=== PATIENT | female | born 1995 | race African-American/Black ===

== ENCOUNTER 2017-12-31 11:49 | Emergency (ER) | payer SELFPAY ==
[2017-12-31] MEDS ORDERED: predniSONE 20 MG TAB ONE (12:31)
[2017-12-31] MEDS ORDERED: Amoxicillin/Potassium Clav 875 MG TAB ONE (12:31)
== END 2017-12-31 12:43 | disposition home or self-care (01) ==
LOC: MADERS 11:49
DX: J02.9 Acute pharyngitis, unspecified (principal)
CPT/HCPCS: 99282; J7506

== ENCOUNTER 2018-10-07 06:33 | Emergency (ER) | payer MEDICAID, SELFPAY | END 2018-10-07 07:40 | disposition home or self-care (01) | LOC: MADERS 06:33 | DX: J02.9 Acute pharyngitis, unspecified (principal) | CPT/HCPCS: 87081; 87430; 99283 ==

== ENCOUNTER 2019-07-22 15:17 | Emergency (ER) | payer OTHER, SELFPAY | END 2019-07-22 16:06 | disposition home or self-care (01) | LOC: MADERS 15:17 | DX: S33.5XXA Sprain of ligaments of lumbar spine, initial encounter (principal); X50.1XXA Overexertion from prolonged static or awkward postures, initial encounter | CPT/HCPCS: 99283 ==

== ENCOUNTER 2019-09-03 16:27 | Emergency (ER) | payer SELFPAY ==
[2019-09-03] MEDS ORDERED: Ibuprofen 800 MG TAB ONE (17:12)
[2019-09-03] MEDS ORDERED: Acetaminophen 500 MG TAB ONE (18:00)
--- NOTE | 2019-09-03 18:17 | RAD ---
PA AND LATERAL CHEST: 09/03/19 HISTORY: Fever and productive cough. The film is shot in the lordotic fashion. The heart size is borderline considering the technique. Ted gs are clear of any infiltrates. No significant bony findings. IMPRESSION: No active intrathoracic disease. POS: [facility]
[2019-09-03] MEDS ORDERED: Amoxicillin/Potassium Clav 875 MG TAB ONE (18:19)
[2019-09-03] MEDS ORDERED: Azithromycin 250 MG TAB ONE (18:19)
== END 2019-09-03 19:08 | disposition home or self-care (01) ==
LOC: MADERS 16:27
DX: J15.9 Unspecified bacterial pneumonia (principal)
CPT/HCPCS: 71046; 87081; 87430; 87804

== ENCOUNTER 2020-10-24 00:05 | Emergency (ER) | payer MEDICAID ==
[2020-10-24] MEDS ORDERED: Ibuprofen 800 MG TAB ONE (00:55)
== END 2020-10-24 01:09 | disposition home or self-care (01) ==
LOC: MADERS 00:05
DX: S93.402A Sprain of unspecified ligament of left ankle, initial encounter (principal); X50.1XXA Overexertion from prolonged static or awkward postures, initial encounter

== ENCOUNTER 2022-01-07 00:49 | Emergency (ER) | payer MEDICAID, OTHER ==
[2022-01-07] MEDS ORDERED: Sodium Chloride 0.9% 1,000 ML ONE (01:19)
== END 2022-01-07 02:31 | disposition home or self-care (01) ==
LOC: MADERS 00:49
DX: K52.9 Noninfective gastroenteritis and colitis, unspecified (principal)
CPT/HCPCS: 96360; J7050

== ENCOUNTER 2022-04-15 14:14 | Emergency (ER) | payer OTHER, SELFPAY ==
[2022-04-15 15:20] LABS: Bilirubin Small (Negative); Blood, Urine Large (Negative); Glucose, Urine (Dipstick) Negative (Negative); Ketone, Urine Trace mg/dL (Negative); Leukocyte Large (Negative); Nitrite Negative (Negative); Protein, Urine (Dipstick) 30 mg/dL (Neg-Trace); Specific Gravity, Urine 1.015 (1.005-1.030); pH, Urine 6.5 (5.0-9.0)
[2022-04-15 15:21] LABS: Clarity Cloudy (Clear)
[2022-04-15 15:26] LABS: Anion Gap 11 mmol/L (10-20); BUN (Urea Nitrogen) 4 mg/dL (7.0-18.7); Calc. Creatinine Clearance 0 mL/min (70-130); Calcium 9.3 mg/dL (7.8-10.44); Carbon Dioxide 24 mmol/L (22-29); Chloride 107 mmol/L (98-107); Estimated GFR 122; Glucose 118 mg/dL (70-105); Potassium 3.9 mmol/L (3.5-5.1); Sodium 138 mmol/L (136-145)
[2022-04-15 15:28] LABS: Bacteria/HPF Rare-Few HPF (None Seen); RBC/HPF Greater than 50 HPF (0-3); Trichomonas/HPF 1+ HPF (None Seen); WBC/HPF Greater Than 50 HPF (0-3)
[2022-04-15 15:31] LABS: #Basophils 0.1 thou/uL (0.0-0.2); #Eosinphils 0.1 thou/uL (0.0-0.7); #Monocytes 0.6 thou/uL (0.11-0.59); #Neutrophils 4.7 thou/uL (1.40-6.50); %Basophils 0.9 % (0.0-1.0); %Eosinophils 1.1 % (0.0-10.0); %Lymphocytes 15.6 % (21.0-51.0); %Monocytes 9.5 % (0.0-10.0); %Neutrophils 73.1 % (42.0-75.0); Anisocytosis SLIGHT = 6-15 cells (100X) (0-5/hpf); Hemoglobin 10.3 g/dL (12.0-16.0); MDiff Complete? YES; Mean Corpuscular HGB CONC 30.5 g/dL (32.0-36.0); Mean Corpuscular Hemoglobin 24.4 pg (27.0-31.0); Mean Corpuscular Volume 79.9 fL (78.0-98.0); Mean Platelet Volume 6.7 fL (7.4-10.4); Platelet Count 317 thou/uL (130-400); RBC Distribution Width 17.4 % (11.5-14.5); Red Blood Cell (RBC) Count 4.23 mill/uL (4.20-5.40); White Blood Cell (WBC) Count 6.5 thou/uL (4.8-10.8)
== END 2022-04-15 17:03 | disposition home or self-care (01) ==
LOC: MADERS 14:14
DX: O20.0 Threatened abortion (principal); O99.211 Obesity complicating pregnancy, first trimester; Z3A.13 13 weeks gestation of pregnancy; Z79.82 Long term (current) use of aspirin; Z79.899 Other long term (current) drug therapy
CPT/HCPCS: 36415; 80048; 81003; 81015; 84702; 85025; 86900; 86901; 87086

== ENCOUNTER 2023-08-08 10:17 | Emergency (ER) | payer OTHER, SELFPAY ==
[2023-08-08] MEDS ORDERED: Ipratropium/Albuterol 3 ML NEB ONE (10:36)
== END 2023-08-08 11:46 | disposition home or self-care (01) ==
LOC: MADERS 10:17
DX: J10.1 Influenza due to other identified influenza virus with other respiratory manifestations (principal)
CPT/HCPCS: 71045; 87635; 87804; J7620

== ENCOUNTER 2024-12-26 07:56 | Emergency (ER) | payer SELFPAY | END 2024-12-26 08:55 | disposition home or self-care (01) | LOC: MADERS 07:56 | DX: S80.812A Abrasion, left lower leg, initial encounter (principal); E66.9 Obesity, unspecified; W19.XXXA Unspecified fall, initial encounter | CPT/HCPCS: 99283 ==